=== PATIENT | male | born 1990 | race Caucasian/White ===

== ENCOUNTER 2016-05-22 21:43 | Inpatient (IN) | payer MEDICAID, OTHER ==
[~2016-05-22] VITALS: Ht 165.1 cm; Wt 91.6 kg
[2016-05-22] MEDS ORDERED: QUET25TA PO (22:17)
[2016-05-22] MEDS ORDERED: PALI1.5T PO (22:18)
[2016-05-22] MEDS ORDERED: NICO14T TD (22:23)
[2016-05-22] MEDS ORDERED: PALI3 PO (22:23)
[2016-05-22] MEDS ORDERED: HYDR-4031 PO (22:23)
[2016-05-22 22:34] LABS: BASOPHILS % (AUTO) 0.3 % (0.0-2.0); EOSINOPHILS % (AUTO) 3.3 % (1.0-6.0); HEMATOCRIT 44.6 % (41-53); HEMOGLOBIN 14.5 g/dL (13.5-17.5); LYMPHOCYTES # (AUTO) 2.2 K/uL (1.0-4.8); LYMPHOCYTES % (AUTO) 29.8 % (22.0-44.0); MEAN CORPUSCULAR HEMOGLOBIN 27.2 pg (26.0-34.0); MEAN CORPUSCULAR HGB CONC 32.5 G/dL (31.0-37.0); MEAN CORPUSCULAR VOLUME 84 fL (80-100); MONOCYTES # (AUTO) 1.1 K/uL (0.1-1.0); MONOCYTES % (AUTO) 14.1 % (2.0-9.0); NEUTROPHILS # (AUTO) 3.9 K/uL (1.8-7.7); NEUTROPHILS % (AUTO) 52.5 % (40.0-70.0); PLATELET COUNT (AUTO) 218 K/uL (150-450); RED BLOOD CELL COUNT(AUTO) 5.33 MIL/uL (4.50-5.90); RED CELL DISTRIBUTION WIDTH 14.4 % (11.5-14.5); WHITE BLOOD COUNT (AUTO) 7.5 K/uL (4.5-11.0)
[2016-05-22 22:40] LABS: ANION GAP 8 mmol/L (8-16); CARBON DIOXIDE 26 mmol/L (22-29); CHLORIDE 106 mmol/L (98-107); CREATININE 0.83 mg/dL (0.60-1.30); GLOMERULAR FILTR. RATE CALC > 60 mL/min (>60); POTASSIUM 4.4 mmol/L (3.5-5.1); SODIUM SERUM 140 mmol/L (136-145); UREA NITROGEN, BLOOD 21 mg/dL (7-18)
[2016-05-22 22:46] LABS: ALANINE AMINOTRANSFERASE 30 U/L (12-78); ALBUMIN 3.8 g/dL (3.4-5.0); ASPARTATE AMINOTRANSFERASE 13 U/L (15-37); BILIRUBIN,TOTAL 0.1 mg/dL (0.1-1.0); TOTAL PROTEIN, SERUM 7.1 g/dL (6.4-8.2)
[2016-05-23 04:33] VITALS: BP 139/80
[2016-05-23 08:04] VITALS: BP 106/65
[2016-05-23] MEDS: PALIPERIDONE 6 MG ER TABLET PO SCH (10:44)
[2016-05-23] MEDS: LORazepam 2 MG TABLET PO PRN (16:24)
[2016-05-23] MEDS: QUEtiapine FUMARATE 25 MG TABLET PO SCH (20:05)
[2016-05-23 20:27] VITALS: BP 122/71
[2016-05-24 08:06] VITALS: BP 131/76
[2016-05-24] MEDS: PALIPERIDONE 6 MG ER TABLET PO SCH (09:56)
[2016-05-24] MEDS: LORazepam 2 MG TABLET PO PRN ×2 (10:37→18:00)
[2016-05-24] MEDS: HALOPERIDOL 5 MG TABLET PO PRN ×2 (13:32→18:00)
[2016-05-24 18:12] VITALS: BP 127/76
[2016-05-24] MEDS: QUEtiapine FUMARATE 25 MG TABLET PO SCH (21:26)
[2016-05-25 09:32] VITALS: BP 127/72
[2016-05-25] MEDS: PALIPERIDONE 6 MG ER TABLET PO SCH (09:32)
[2016-05-25] MEDS: LORazepam 2 MG TABLET PO PRN (16:36)
[2016-05-25] MEDS: HALOPERIDOL 5 MG TABLET PO PRN (16:37)
[2016-05-25 16:43] VITALS: BP 137/77
[2016-05-25] MEDS: QUEtiapine FUMARATE 25 MG TABLET PO SCH (20:01)
[2016-05-26 06:34] VITALS: BP 114/61
[2016-05-26 08:00] VITALS: BP 118/62
[2016-05-26] MEDS: LORazepam 2 MG TABLET PO PRN ×2 (09:54→18:15)
[2016-05-26] MEDS: PALIPERIDONE 6 MG ER TABLET PO SCH (09:54)
[2016-05-26] MEDS: HALOPERIDOL 5 MG TABLET PO PRN ×2 (09:54→18:15)
[2016-05-26 17:59] VITALS: BP 130/89
[2016-05-26] MEDS: QUEtiapine FUMARATE 25 MG TABLET PO SCH (20:33)
[2016-05-26] MEDS: ZOLPIDEM TARTRATE 10 MG TABLET PO PRN (20:33)
[2016-05-27 08:00] VITALS: BP 120/92
[2016-05-27] MEDS: PALIPERIDONE 6 MG ER TABLET PO SCH (10:00)
[2016-05-27] MEDS: LORazepam 2 MG TABLET PO PRN ×2 (10:01→15:21)
[2016-05-27] MEDS: HALOPERIDOL 5 MG TABLET PO PRN ×2 (10:01→15:21)
[2016-05-27 18:12] VITALS: BP 113/64
[2016-05-27] MEDS: QUEtiapine FUMARATE 25 MG TABLET PO SCH (20:23)
[2016-05-28 01:03] VITALS: BP 125/82
[2016-05-28] MEDS: PALIPERIDONE 6 MG ER TABLET PO SCH (09:07)
[2016-05-28 10:06] VITALS: BP 130/77
[2016-05-28] MEDS: LORazepam 2 MG TABLET PO PRN ×2 (11:56→16:30)
[2016-05-28] MEDS: HALOPERIDOL 5 MG TABLET PO PRN (16:30)
[2016-05-28 19:56] VITALS: BP 119/68
[2016-05-28] MEDS: ZOLPIDEM TARTRATE 10 MG TABLET PO PRN (20:15)
[2016-05-28] MEDS: QUEtiapine FUMARATE 25 MG TABLET PO SCH (20:15)
[2016-05-29 08:00] VITALS: BP 119/75
[2016-05-29] MEDS: PALIPERIDONE 6 MG ER TABLET PO SCH (08:20)
[2016-05-29] MEDS: LORazepam 2 MG TABLET PO PRN (11:08)
[2016-05-29] MEDS: HALOPERIDOL 5 MG TABLET PO PRN (11:08)
[2016-05-29] MEDS ORDERED: PALI6 PO (16:31)
[2016-05-29] MEDS ORDERED: QUET25TA PO (16:32)
== END 2016-05-29 17:30 | disposition home or self-care (01) | DRG 750 ==
LOC: EMS 21:44 → 3EI 05-23 01:47
PROVIDERS: ADMIT Psychiatry & Neurology Child & Adolescent Psychiatry; ATTEND Psychiatry & Neurology Child & Adolescent Psychiatry
DX: F25.1 Schizoaffective disorder, depressive type (principal); R45.851 Suicidal ideations; Z59.0 Homelessness; F31.9 Bipolar disorder, unspecified; F41.9 Anxiety disorder, unspecified; F15.10 Other stimulant abuse, uncomplicated; F17.210 Nicotine dependence, cigarettes, uncomplicated; F10.10 Alcohol abuse, uncomplicated; Z71.51 Drug abuse counseling and surveillance of drug abuser; Z71.6 Tobacco abuse counseling; Z71.41 Alcohol abuse counseling and surveillance of alcoholic; Z79.899 Other long term (current) drug therapy
CPT/HCPCS: 99285; G0480